=== PATIENT | male | born 1965 | race Two or more races ===

== ENCOUNTER 2017-05-02 13:55 | Emergency (ER) | payer MEDICAID, OTHER ==
[~2017-05-02] VITALS: Ht 165.1 cm; Wt 108.9 kg
[2017-05-02 14:01] VITALS: BP 151/83
[2017-05-02 14:30] LABS: Urine Bacteria NONE SEEN /hpf (None Seen); Urine Blood 3+ /uL (Negative); Urine Specific Gravity 1.014 (1.001-1.035); Urine WBC 734 /hpf (0 - 3); Urine WBC Clumps PRESENT /hpf (None Seen)
== END 2017-05-02 14:55 | disposition home or self-care (01) ==
LOC: EDSEX 13:55 → ER 13:55
DX: N39.0 Urinary tract infection, site not specified (principal); Z88.6 Allergy status to analgesic agent
CPT/HCPCS: 81001